=== PATIENT | female | born 1995 | race Caucasian/White ===

== ENCOUNTER 2019-02-01 15:19 | Emergency (ER) | payer OTHER ==
[2019-02-01 15:28] VITALS: BP 156/92
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
== END 2019-02-01 16:20 | disposition home or self-care (01) ==
DX: F41.9 Anxiety disorder, unspecified (principal)

== ENCOUNTER 2019-02-26 16:06 | Emergency (ER) | payer OTHER ==
[2019-02-26] MEDS ORDERED: ONDANSETRON 4 MG/2 ML VIAL ONE (16:32)
[2019-02-26] MEDS ORDERED: ONDANSETRON 4 MG/2 ML VIAL IVP ONE (16:53)
[2019-02-26] MEDS ORDERED: fentaNYL 100 MCG/2 ML INJ IVP ONE (17:00)
[2019-02-26] MEDS ORDERED: NS 1,000 ML IV ONE (17:00)
[2019-02-26 17:09] LABS: PLATELET COUNT 230 10^3/uL (150-400)
--- NOTE | 2019-02-26 17:58 | EDPHY ---
H & P Stated Complaint: RUQ pain, n/v, feels it is her gallbladder Time Seen by Provider: 02/26/19 16:30 HPI/ROS: CHIEF COMPLAINT: Right upper quadrant pain HISTORY OF PRESENT ILLNESS: 23-year-old female presents emergency department complaining of right upper quadrant pain which began today. Patient has a strong family history of gallstones and is very concerned and anxious at this may be the cause of her pain. She denies a known history of gallstone disease. No fevers or chills, no diarrhea. She has had nausea and vomiting. She is very anxious. Reports prior history of similar episodes of pain which have not been as severe or long lasting. No radiation of the pain. No fever, chills, chest pain, shortness of breath, palpitations, diarrhea, urinary complaints, headache, lightheadedness. REVIEW OF SYSTEMS: A comprehensive 10 system review of systems was reviewed and is otherwise negative aside from elements mentioned in the history of present illness and medical decision making. PAST MEDICAL HISTORY: Anxiety. SOCIAL HISTORY: Nonsmoker, reports heavy alcohol use on the weekends. VITAL SIGNS Reviewed by me. Sitting in the bed, tearful, holding her right upper quadrant. GENERAL: Well-developed, well-nourished, no respiratory distress. Anxious.. HEENT: Atraumatic. Eyes: No icterus, no injection. Mouth: Dry lips, moist mucous membranes. No erythema or lesions. Neck: supple with no adenopathy. LUNGS: Clear to auscultation bilaterally, no wheezes, rhonchi or rales. CARDIAC: Regular rate and rhythm, no rubs, murmurs or gallops. ABDOMEN: Soft, mild right upper quadrant tenderness, no Villa's, no rebound, no guarding no right flank tenderness. BACK: No CVA tenderness. EXTREMITIES: No trauma. No edema. Range of motion is normal throughout. NEURO: Alert and oriented, grossly nonfocal. SKIN: Warm and dry, no rash. PSYCHIATRIC: Normal mentation, no agitation. - Personal History LMP (Females 10-55): Extended Cycle BCP/Inj Current Tetanus Diphtheria and Acellular Pertussis (TDAP): Yes - Medical/Surgical History Hx Asthma: No Hx Chronic Respiratory Disease: No Hx Diabetes: No Hx Cardiac Disease: No Hx Renal Disease: No Hx Cirrhosis: No Hx Alcoholism: No Hx HIV/AIDS: No Hx Splenectomy or Spleen Trauma: No Other PMH: oral surgery - Social History Smoking Status: Never smoked Constitutional: Initial Vital Signs Temperature (C) 36.8 C 02/26/19 16:08 Heart Rate 93 02/26/19 16:08 Respiratory Rate 14 02/26/19 16:08 Blood Pressure 148/96 H 02/26/19 16:08 O2 Sat (%) 98 02/26/19 16:08 O2 Delivery Mode Room Air Allergies/Adverse Reactions: No Known Allergies Allergy (Unverified 02/01/19 15:23) Home Medications: Medication Instructions Recorded LORazepam [Ativan] 1 mg PO Q8HRS PRN #10 tablet 02/01/19 Nexplanon 02/01/19 Dicyclomine [Bentyl 20 MG (*)] 20 mg PO QID PRN #20 tab 02/26/19 Medical Decision Making - Diagnostics Imaging Results: RUQ Ultrasound Impression: 1. Normal gallbladder. No cholelithiasis or biliary dilation. 2. Hepatic steatosis. Findings discussed with Emergency Department physician, Mayra Velázquez MD, on , 17:52. Dictated By: Isaac Du MD ED Course/Re-evaluation: IV placed. Patient received Zofran for nausea. Right upper quadrant ultrasound ordered. Labs demonstrate elevation of the AST and ALT in a non alcoholic pattern. Lipase is normal. Normal white count. Ultrasound demonstrates no gallstones. Patient does have hepatic steatosis. Discussed with the patient importance of limiting or alcohol intake. She is feeling better with IV fluids. Will discharge her to follow up with her primary care physician and caution her to stop drinking alcohol in excess. Hepatitis panel also ordered. Differential Diagnosis: After obtaining the patient's history and performing an examination, differential diagnosis considered included but was not limited to gastritis, constipation, pancreatitis, urinary tract infection, kidney stone. - Data Points Laboratory Results: Laboratory Results 02/26/19 16:30 02/26/19 16:30 Medications Given: Discontinued Medications Fentanyl (Sublimaze) 75 mcg IVP EDNOW ONE Stop: 02/26/19 17:01 Last Admin: 02/26/19 17:11 Dose: Not Given Sodium Chloride (Ns) 1,000 mls @ 0 mls/hr IV EDNOW ONE; Wide Open PRN Reason: Protocol Stop: 04/29/19 17:01 Last Admin: 02/26/19 17:11 Dose: 1,000 mls Ondansetron HCl (Zofran) 4 mg IVP EDNOW ONE Stop: 02/26/19 16:54 Last Admin: 02/26/19 16:54 Dose: 4 mg Departure - Departure Disposition: Home, Routine, Self-Care Clinical Impression: Abdominal pain Qualifiers: Abdominal location: right upper quadrant Qualified Code(s): R10.11 - Right upper quadrant pain Condition: Good Instructions: Abdominal Pain (ED) Additional Instructions: There is no evidence of any gallbladder or gallstone disease. You been given a prescription for Bentyl to use if needed for ongoing pain. This is helpful for any crampy abdominal discomfort. You do have some elevation in your liver function test. You should follow up with your primary care physician. Stop drinking alcohol in excessive quantities. Referrals: NONE *PRIMARY CARE P,. [Primary Care Provider] - As per Instructions Branden Salcido DO [Doctor of Osteopathy] - As per Instructions (Please follow up with Dr. Salcido if you do not have a primary care physician for re- evaluation.) Prescriptions: Dicyclomine [Bentyl 20 MG (*)] 20 mg PO QID PRN #20 tab PRN Reason: abdominal pain
[2019-02-26 18:13] VITALS: BP 134/93
[2019-02-26 20:07] LABS: HEPATITIS B SURFACE ANTIGEN NEGATIVE (NEGATIVE)
[2019-02-26 20:13] LABS: HEPATITIS A ANTIBODY IGM (BCH) NEGATIVE (NEGATIVE); HEPATITIS B CORE AB IGM NEGATIVE (NEGATIVE)
[2019-02-26 20:25] LABS: HEPATITIS C ANTIBODY TOTAL NEGATIVE (NEGATIVE)
== END 2019-02-26 18:12 | disposition home or self-care (01) ==
DX: R10.11 Right upper quadrant pain (principal); F41.9 Anxiety disorder, unspecified; E86.9 Volume depletion, unspecified
CPT/HCPCS: 96374; G0472; J2405